=== PATIENT | female | born 1965 | race Caucasian/White ===

== ENCOUNTER → 2018-07-05 00:24 | Outpatient (CLI) | payer BC, SELFPAY ==
--- NOTE | 2018-07-05 09:00 | DI.REPORT_ITS ---
SYMPTOM/DIAGNOSIS: RT ELBOW PAIN, M25.521 RIGHT ELBOW: No prior comparison exams are available. No acute fracture or joint effusion is seen. There is mild spurring at the proximal radial ulnar joint, coronoid process and olecranon. IMPRESSION: Mild degenerative changes. No acute abnormality.
== END ==
DX: M25.521 Pain in right elbow (principal); M19.021 Primary osteoarthritis, right elbow
CPT/HCPCS: 73080

== ENCOUNTER 2018-09-28 13:06 | Outpatient (REF) | payer BC, SELFPAY ==
[2018-09-28 13:39] LABS: Bilirubin Negative (Negative); Blood Negative (Negative); Clarity Clear; Glucose Negative (Negative); Ketones Negative (Negative); Leukocyte Esterase Negative (Negative); Nitrite Negative (Negative); Specific Gravity 1.025 (1.005-1.025); Urobilinogen 0.2 EU/dL (Up TO 0.2); pH 5.5 (5-8)
== END 2018-09-28 13:26 ==
LOC: LBN 13:06
DX: R31.9 Hematuria, unspecified (principal)
CPT/HCPCS: 81003

== ENCOUNTER 2018-11-04 01:01 | Outpatient (CLI) | payer BC, SELFPAY ==
[2018-11-04 08:42] LABS: CREATININE 0.81 mg/dL (0.55-1.02)
--- NOTE | 2018-11-04 09:30 | DI.CT_ITS ---
SYMPTOM/DIAGNOSIS: ABD PAIN, RT AND FLANK R10.9, INTERMITTENT UPPER ABD PAIN CT ABDOMEN AND PELVIS: Images were performed from the lung bases through the ischial tuberosities after IV and oral contrast. The lung bases are clear. The heart size is normal. The liver, spleen, gallbladder, pancreas, kidneys and adrenals have a normal appearance. No urinary tract calculi or hydronephrosis is seen. The bladder is unremarkable. The uterus shows a lobulation of the posterior myometrium which could represent a fibroid. The ovaries are normal in size and appearance. The bowel is well opacified with oral contrast. There is mild diverticulosis. There is no evidence of diverticulitis. The small bowel is unremarkable. No adenopathy or free fluid is seen. No bone abnormalities are identified. IMPRESSION: Diverticulosis without evidence of diverticulitis. No urinary tract abnormalities seen. There is lobulation of the posterior myometrium which could represent a fibroid.
[2018-11-04] MEDS: Omnipaque 350 MG/ML 100 ML BTL IJ (09:44)
[2018-11-04] MEDS: Omnipaque 350 MG/ML 50 ML BTL PO (09:45)
== END 2018-11-04 01:21 ==
DX: R10.31 Right lower quadrant pain (principal); R10.11 Right upper quadrant pain; K57.30 Diverticulosis of large intestine without perforation or abscess without bleeding; Z13.89 Encounter for screening for other disorder
CPT/HCPCS: 74177; 82565; J3490; Q9967

== ENCOUNTER 2019-02-01 21:20 | Outpatient (REF) | payer BC, SELFPAY ==
[2019-02-01 21:26] LABS: Bilirubin Negative (Negative); Blood Negative (Negative); Clarity Clear; Glucose Negative (Negative); Ketones Negative (Negative); Leukocyte Esterase Negative (Negative); Nitrite Negative (Negative); Urobilinogen 0.2 EU/dL (Up TO 0.2); pH 5.5 (5-8)
== END 2019-02-01 21:40 ==
LOC: NCHCN 21:20
DX: R39.15 Urgency of urination (principal)
CPT/HCPCS: 81003

== ENCOUNTER 2019-05-12 08:33 | Outpatient (CLI) | payer BC, SELFPAY ==
[2019-05-12 12:04] LABS: ALT 25 U/L (12-78); AST 13 U/L (15-37); Albumin 3.7 g/dL (3.4-5.0); Alkaline Phosphatase 83 U/L (46-116); Anion Gap 8.8 mmol/L (3-11); BUN 21 mg/dL (7-18); Bilirubin, Total 0.4 mg/dL (0.2-1.0); CO2 30.2 mmol/L (21.0-32.0); CREATININE 0.86 mg/dL (0.55-1.02); Calculated LDL 156; Chloride 105 mmol/L (98-107); Cholesterol 220 mg/dL (50-200); Glucose 99 mg/dL (70-100); HDL Cholesterol 42 mg/dL (40-60); Potassium 3.8 mmol/L (3.5-5.1); Sodium 144 mmol/L (136-145); TSH (W/Ref FT4) 1.79 uIU/mL (0.358-3.74); Total Protein 6.9 g/dL (6.4-8.2); Triglyceride 111 mg/dL (30-150)
== END 2019-05-12 08:53 ==
DX: E03.9 Hypothyroidism, unspecified (principal); E53.8 Deficiency of other specified B group vitamins; E55.9 Vitamin D deficiency, unspecified; F41.9 Anxiety disorder, unspecified; G25.81 Restless legs syndrome; K21.9 Gastro-esophageal reflux disease without esophagitis; M25.551 Pain in right hip; M54.2 Cervicalgia; M75.81 Other shoulder lesions, right shoulder; R60.0 Localized edema; I10 Essential (primary) hypertension; G47.00 Insomnia, unspecified; Z00.00 Encounter for general adult medical examination without abnormal findings
CPT/HCPCS: 36415; 80053; 80061; 83721; 84443

== ENCOUNTER 2019-05-17 11:42 | Outpatient (REF) | payer BC, SELFPAY ==
--- NOTE | 2019-05-17 09:00 | PAPFT_PTH ---
PATIENT: Aura Garcia LOC: [facility] U#:[id number] AGE/SX: 53/F ROOM: RE05/17/[address]: Nicole Mendez APRN : 1965 BED: DIS: 05/17/2019 SPEC #: [id number] RECD: 05/17/19 12:58 STATUS: ISAIAH REChrissy #: [id number] KATHIA: 05/17/19 09:[address]: Nicole Mendez DEPT: [facility] Cytology RECD BY: Yanet Kearns Tissues: 1 - CX/ENDOCX FOR PAP SMEARS Procedures: PAP THIN PREP/UVM Screening HPV DNA PROBE Comments: [id number]
== END 2019-05-17 12:02 ==
LOC: LBN 11:42
DX: Z12.4 Encounter for screening for malignant neoplasm of cervix (principal); Z11.51 Encounter for screening for human papillomavirus (HPV)
CPT/HCPCS: 88142; 87624

== ENCOUNTER 2020-04-05 09:27 | Outpatient (CLI) | payer MEDICAID, SELFPAY ==
[2020-04-07 07:12] LABS: COVID-19 RT-PCR Result NEGATIVE (Negative)
== END 2020-04-05 09:47 ==
PROVIDERS: Visit Provider Family Medicine
DX: R50.9 Fever, unspecified (principal)
CPT/HCPCS: U0003

== ENCOUNTER 2020-10-31 05:07 | Outpatient (CLI) | payer MEDICAID, SELFPAY ==
[2020-10-31 10:42] LABS: ALT 21 U/L (14-59); AST 15 U/L (15-37); Alkaline Phosphatase 93 U/L (46-116); Anion Gap 8.2 mmol/L (3-11); BUN 18 mg/dL (7-18); Bilirubin, Total 0.5 mg/dL (0.2-1.0); CO2 27.8 mmol/L (21.0-32.0); Calcium 9.4 mg/dL (8.5-10.1); Chloride 106 mmol/L (98-107); Estimated GFR 57.35 (mL/min/1.73m2); Glucose 96 mg/dL (74-106); Potassium 4.3 mmol/L (3.5-5.1); Sodium 142 mmol/L (136-145); TSH (W/Ref FT4) 2.68 uIU/mL (0.36-3.74); Total Protein 7.2 g/dL (6.4-8.2)
== END 2020-10-31 05:27 ==
DX: E03.9 Hypothyroidism, unspecified (principal); G47.00 Insomnia, unspecified; Z00.00 Encounter for general adult medical examination without abnormal findings
CPT/HCPCS: 36415; 80053; 84443

== ENCOUNTER 2021-04-14 02:26 | Outpatient (CLI) | payer MEDICAID, SELFPAY ==
[2021-04-14 11:25] LABS: Hemoglobin A1C 5.6 % (<5.7)
[2021-04-14 11:53] LABS: Iron 58 ug/dL (50-170); Total Iron Binding Capacity 361 ug/dL (250-450); Transferrin Sat 16 % (15-50)
[2021-04-14 12:11] LABS: Abs Immature Grans 0.06 10^3/uL (0.0-0.06); Absolute Basophil Count 0.03 10^3/uL (0.0-0.2); Absolute Eosinophil Count 0.19 10^3/uL (0.0-0.7); Absolute Lymphocyte Count 2.03 10^3/uL (1.2-3.4); Absolute Monocyte Count 0.46 10^3/uL (0.1-0.8); Absolute Neutrophil Count 4.51 10^3/uL (1.2-6.7); Basophils % 0.4; Eosinophils % 2.6; HCT 45.7 % (36.0-46.0); HGB 15.3 g/dL (11.2-15.7); Immature Grans % 0.8; Lymphocytes % 27.9; MCH 28.3 pg (27.0-33.0); MCHC 33.5 % (32.0-36.0); MCV 84.5 fL (80-95); MPV 10.5 fL (8.0-11.0); Monocytes % 6.3; Nucleated RBC 0 %; Platelet Count 350 10^3/uL (130-400); RBC 5.41 10^6/uL (3.93-5.22); RDW 12.3 % (11.7-14.6); RDW-SD 37.9 fL; WBC 7.28 10^3/uL (4.4-10.8)
[2021-04-14 12:20] LABS: Bilirubin Negative (Negative); Blood Negative (Negative); Clarity Clear (Clear); Glucose Negative (Negative); Ketones Negative (Negative); Leukocyte Esterase Negative (Negative); Nitrite Negative (Negative); Specific Gravity 1.025 (1.005-1.025); Urobilinogen 0.2 EU/dL (Up TO 0.2); pH 5.5 (5-8)
[2021-04-14 12:23] LABS: ALT 24 U/L (14-59); AST 15 U/L (15-37); Alkaline Phosphatase 93 U/L (46-116); Anion Gap 10.8 mmol/L (3-11); BUN 12 mg/dL (7-18); Bilirubin, Total 0.5 mg/dL (0.2-1.0); CO2 27.2 mmol/L (21.0-32.0); CREATININE 0.9 mg/dL (0.55-1.02); Calcium 9.6 mg/dL (8.5-10.1); Calculated LDL 184 mg/dL (<100); Chloride 104 mmol/L (98-107); Cholesterol 258 mg/dL (<200); Ferritin 67 ng/mL (8-252); Folate 15.4 ng/mL (8.6-20.0); Glucose 97 mg/dL (74-106); HDL Cholesterol 47 mg/dL (40-60); Sodium 142 mmol/L (136-145); TSH 1.89 uIU/mL (0.36-3.74); Total Protein 7.5 g/dL (6.4-8.2); Triglyceride 136 mg/dL (<150); Vitamin B12 368 pg/mL (193-986)
[2021-04-14 12:43] LABS: FREE T4 1.31 ng/dL (0.76-1.46)
[2021-04-14 23:31] LABS: T3,Free 3.3 pg/mL (2.8-5.3)
[2021-04-16 08:55] LABS: Homocysteine 12.3 umol/L (5.0-13.9)
[2021-04-16 09:52] LABS: Lipoprotein (a) 14 mg/dL (<=30)
== END 2021-04-14 02:27 | disposition home or self-care (01) ==
PROVIDERS: Visit Provider Naturopath
DX: E78.5 Hyperlipidemia, unspecified (principal); E03.9 Hypothyroidism, unspecified; R53.83 Other fatigue; R10.31 Right lower quadrant pain
CPT/HCPCS: 36415; 80053; 80061; 83090; 83695; 81003; 82607; 82728; 82746; 83036; 83540; 83550; 84439; 84443; 84481; 85025

== ENCOUNTER 2021-04-29 02:18 | Outpatient (CLI) | payer MEDICAID, SELFPAY ==
--- NOTE | 2021-04-29 | DI.US_ITS ---
Exam(s) US ABD PELV TRANSVAG NON-OB EXAM: US ABD PELV TRANSVAG NON-OB CLINICAL HISTORY: EPIGASTRIC PAIN,R10.13,RLQ PAIN,R10.31 TECHNIQUE: Ultrasound of the abdomen and pelvic was performed using standard protocol. COMPARISON: US PELVIS TRANSVAG from 08/03/[address] ABDOMEN PELVIS W from 11/04/2018 FINDINGS: LIVER: Normal echogenicity. The liver measures 13.9 cm in length. GALLBLADDER: No evidence of cholelithiasis. No evidence of wall thickening. No pericholecystic fluid identified. KIDNEYS: Kidneys are symmetric in size. No evidence of renal calculi. No evidence of hydronephrosis. No renal mass or cyst identified. BILIARY SYSTEM: Common bile duct measures < 7 mm. No intrahepatic biliary ductal dilation. ARAUZ'S SIGN: Negative. PANCREAS: Normal where visualized. SPLEEN: Not enlarged. ABDOMINAL AORTA AND IVC: Visualized portions normal caliber. ASCITES: None seen. UTERUS: Position: Anteverted. Size: 8.1 long by 3.6 AP by 5.1 transverse cm Endometrium: 0.2 cm. Normal for patient's menstrual status. Myometrium: 1.2 x 1.3 x 1.4 cm uterine fibroid in the posterior body. Cervix: Nabothian cysts are present. OVARIES: The ovaries were not seen transabdominally or transvaginally on this examination. No adnexa l mass is seen sonographically. CUL-DE-SAC: Free fluid: None. IMPRESSION: 1. Unremarkable abdominal ultrasound. 2. Small uterine fibroid. 3. Ovaries not visualized transabdominally or transvaginally. No adnexal masses identified. DATA REPOSITORY:
== END 2021-04-29 02:38 ==
PROVIDERS: Visit Provider Naturopath
DX: R10.13 Epigastric pain (principal); R10.31 Right lower quadrant pain; D25.9 Leiomyoma of uterus, unspecified
CPT/HCPCS: 76700; 76830; 76856

== ENCOUNTER 2022-02-04 02:45 | Outpatient (CLI) | payer MEDICAID, SELFPAY ==
[2022-02-04 09:31] LABS: ALT 26 U/L (14-59); AST 12 U/L (15-37); Albumin 3.8 g/dL (3.4-5.0); Alkaline Phosphatase 91 U/L (46-116); Anion Gap 5.1 mmol/L (3-11); BUN 13 mg/dL (7-18); Bilirubin, Total 0.6 mg/dL (0.2-1.0); CO2 28.9 mmol/L (21.0-32.0); CREATININE 0.9 mg/dL (0.55-1.02); Calcium 9.4 mg/dL (8.5-10.1); Calculated LDL 164 mg/dL (<100); Chloride 107 mmol/L (98-107); Cholesterol 238 mg/dL (<200); Glucose 101 mg/dL (74-106); HDL Cholesterol 47 mg/dL (40-60); Potassium 4.4 mmol/L (3.5-5.1); Sodium 141 mmol/L (136-145); TSH (W/Ref FT4) 3.48 uIU/mL (0.36-3.74); Total Protein 7.2 g/dL (6.4-8.2); Triglyceride 135 mg/dL (<150)
== END 2022-02-04 02:46 | disposition home or self-care (01) ==
LOC: LBO 02:45
DX: Z00.00 Encounter for general adult medical examination without abnormal findings (principal); Z13.220 Encounter for screening for lipoid disorders; E03.9 Hypothyroidism, unspecified; G47.00 Insomnia, unspecified
CPT/HCPCS: 36415; 80053; 80061; 84443

== ENCOUNTER 2022-03-19 01:43 | Outpatient (CLI) | payer MEDICAID, SELFPAY ==
--- NOTE | 2022-03-19 08:30 | DI.MAMMO_ITS ---
Exam(s) MAMMO SCREENING EXAM: MAMMO SCREENING CLINICAL HISTORY: screening,z12.39 TECHNIQUE: Mammograms were interpreted according to the usual protocol including computer analysis w [facility] CAD system, tomosynthesis and C-view imaging. COMPARISON: FINDINGS: The breasts are of moderate density with fairly symmetrical distribution of fibroglandular tissue. N o dominant mass or clumped microcalcification is identified in either breast. The current examinatio n is compared with previous examinations including March 2021 and there has been no gross interval miller ge in appearance in comparison with the prior studies. IMPRESSION: No specific evidence of malignancy at this time. Routine screening examinations are suggested at ye jeremias intervals in this age group according to the ACS ACR guidelines. BI-RADS Category 1 - Negative Breast Density - Category B - Scattered areas of fibroglandular density
== END 2022-03-19 02:03 ==
DX: Z12.31 Encounter for screening mammogram for malignant neoplasm of breast (principal)
CPT/HCPCS: 77063; 77067

== ENCOUNTER 2022-05-22 03:33 | Outpatient (CLI) | payer MEDICAID, SELFPAY ==
--- NOTE | 2022-05-22 10:15 | RT.EKG_ITS ---
APPROVED REPORT Exam: Resting ECG Reason for Exam: PALPITATION Patient Location: O HR:67 bpm ECG Measurements Heart Rate 67 AXIS AR 143 P 41 QRSd 93 QRS 42 QT 376 T 36 QTc 397 Conclusion Sinus rhythm...normal P axis, V-rate 50- 99 Baseline wander in lead(s) V6 Normal Electrocardiogram
== END 2022-05-22 03:34 | disposition home or self-care (01) ==
LOC: RT 03:33
PROVIDERS: Visit Provider Naturopath
DX: R00.2 Palpitations (principal)
CPT/HCPCS: 93005; 93010

== ENCOUNTER 2023-02-23 03:05 | Outpatient (CLI) | payer MEDICAID, SELFPAY ==
[2023-02-23 09:09] LABS: Abs Immature Grans 0.03 10^3/uL (0.0-0.06); Absolute Basophil Count 0.05 10^3/uL (0.0-0.2); Absolute Eosinophil Count 0.26 10^3/uL (0.0-0.7); Absolute Lymphocyte Count 2.33 10^3/uL (1.2-3.4); Absolute Monocyte Count 0.42 10^3/uL (0.1-0.8); Absolute Neutrophil Count 4.01 10^3/uL (1.2-6.7); Basophils % 0.7; ESR 6 mm/hr (0-30); Eosinophils % 3.7; HCT 44.8 % (36.0-46.0); HGB 14.8 g/dL (11.2-15.7); Immature Grans % 0.4; Lymphocytes % 32.8; MCH 28.3 pg (27.0-33.0); MCV 86 fL (80-95); Monocytes % 5.9; Neutrophils % 56.5; RBC 5.23 10^6/uL (3.93-5.22); RDW 12.1 % (11.7-14.6); RDW-SD 37.7 fL
[2023-02-23 09:19] LABS: Diff Comment Diff Reviewed; RBC Morphology Normal
[2023-02-23 10:04] LABS: Hemoglobin A1C 5.6 % (<5.7)
[2023-02-23 10:14] LABS: ALT 21 U/L (14-59); AST 14 U/L (15-37); Albumin 3.6 g/dL (3.4-5.0); Alkaline Phosphatase 77 U/L (46-116); Anion Gap 8.5 mmol/L (3-11); BUN 15 mg/dL (7-18); Bilirubin, Total 0.4 mg/dL (0.2-1.0); CO2 28.5 mmol/L (21.0-32.0); CREATININE 0.9 mg/dL (0.55-1.02); Calcium 9.3 mg/dL (8.5-10.1); Calculated LDL 189 mg/dL (<100); Chloride 109 mmol/L (98-107); Cholesterol 264 mg/dL (<200); Ferritin 74 ng/mL (8-252); Folate 17.7 ng/mL (8.6-20.0); Glucose 105 mg/dL (74-106); HDL Cholesterol 49 mg/dL (40-60); Sodium 146 mmol/L (136-145); TSH 2.28 uIU/mL (0.36-3.74); Total Protein 7.1 g/dL (6.4-8.2); Triglyceride 134 mg/dL (<150); Vitamin B12 857 pg/mL (193-986)
[2023-02-23 10:15] LABS: Vitamin D 25 Total 49.7 ng/mL (30-100)
[2023-02-23 13:35] LABS: C-Reactive Protein 0.14 mg/dL (0.0-0.3); FREE T4 1.16 ng/dL (0.76-1.46)
[2023-02-23 18:19] LABS: Fibrinogen 340 mg/dL (171-384); T3,Free 4.3 pg/mL (2.8-5.3)
[2023-02-23 19:06] LABS: Estradiol <12 pg/mL (See Note); Progesterone 0.2 ng/mL (See Table)
[2023-02-23 19:52] LABS: Thyroperoxidase Antibody <28 U/mL (<=60)
[2023-02-24 09:02] LABS: DHEA Sulfate 154 ug/dL (30-182)
[2023-02-24 13:18] LABS: ANA Interpretation Negative (Negative)
[2023-02-25 18:39] LABS: Selenium, Serum 104 mcg/L (110-165)
[2023-02-26 23:41] LABS: Iodine, S 61 ng/mL (40-92)
[2023-02-27 16:34] LABS: Testosterone, Free 0.33 ng/dL (<0.13-0.90); Testosterone, Total 18 ng/dL (8-60)
[2023-03-03 12:49] LABS: Insulin, Free 7 uIU/mL (3-25)
[2023-03-03 12:55] LABS: Insulin, Total 9 uIU/mL (3-25)
== END 2023-02-23 03:06 | disposition home or self-care (01) ==
PROVIDERS: PCP Nurse Practitioner Family
DX: R41.840 Attention and concentration deficit (principal); G47.01 Insomnia due to medical condition; R68.82 Decreased libido; E55.9 Vitamin D deficiency, unspecified; R53.83 Other fatigue; E03.9 Hypothyroidism, unspecified; R79.89 Other specified abnormal findings of blood chemistry
CPT/HCPCS: 36415; 80053; 80061; 82306; 82533; 82627; 83525; 83527; 84402; 84403; 85384; 85652; 82190; 82607; 82626; 82670; 82728; 82746; 83036; 84144; 84255; 84439; 84443; 84481; 85025; 86038; 86140; 86376

== ENCOUNTER 2024-02-29 11:00 | Outpatient (CLI) | payer BC, SELFPAY ==
[2024-02-29 13:09] LABS: ALT 27 U/L (14-59); AST 15 U/L (15-37); Albumin 3.7 g/dL (3.4-5.0); Alkaline Phosphatase 83 U/L (46-116); BUN 18 mg/dL (7-18); Bilirubin, Total 0.5 mg/dL (0.2-1.0); CREATININE 0.8 mg/dL (0.55-1.02); Calcium 9.2 mg/dL (8.5-10.1); Calculated LDL 167 mg/dL (<100); Chloride 107 mmol/L (98-107); Cholesterol 260 mg/dL (<200); Estimated GFR 84.82 (mL/min/1.73m2); Glucose 107 mg/dL (74-106); HDL Cholesterol 51 mg/dL (40-60); Sodium 145 mmol/L (136-145); TSH (W/Ref FT4) 2.91 uIU/mL (0.36-3.74); Total Protein 7.3 g/dL (6.4-8.2); Triglyceride 212 mg/dL (<150)
== END 2024-02-29 11:01 | disposition home or self-care (01) ==
LOC: LOS 11:00
PROVIDERS: PCP Nurse Practitioner Family; Referring Provider Nurse Practitioner Family; Visit Provider Nurse Practitioner Family
DX: E03.9 Hypothyroidism, unspecified (principal); Z00.00 Encounter for general adult medical examination without abnormal findings
CPT/HCPCS: 36415; 80053; 80061; 84443

== ENCOUNTER → 2024-03-03 00:34 | Outpatient (CLI) | payer BC, SELFPAY ==
--- NOTE | 2024-03-03 11:07 | DI.RAD_ITS ---
Exam(s) XR HAND LT COMPLETE EXAM: XR HAND LT COMPLETE CLINICAL HISTORY: swelling,ltd range of motion for 6 months after trauma,r22.32. TECHNIQUE: 2D digital imaging was performed. COMPARISON: No exams were available for comparison FINDINGS: 3 views There few small calcific densities adjacent to the lateral aspect of the interphalangeal joint of the thumb. There is mild overlying soft tissue swelling. This may be the site of prior stated trauma. There are no other osseous findings in the thumb. There is no metallic foreign body. No degenerati ve changes. Remainder of the there is unremarkable. IMPRESSION: Tiny calcific densities adjacent to the outer aspect of the interphalangeal joint of the thumb. Give n that there is overlying soft tissue swelling in this area this may be a sequelae of the prior remot e penetrating injury stated on the requisition. Correlation with site of tenderness is recommended. No evidence of osteomyelitis. DATA REPOSITORY: RADIATION DOSE DELIVERED:
== END ==
PROVIDERS: PCP Nurse Practitioner Family; Visit Provider Nurse Practitioner Family
DX: R22.32 Localized swelling, mass and lump, left upper limb (principal)
CPT/HCPCS: 73130

== ENCOUNTER 2024-08-28 02:40 | Outpatient (CLI) | payer MEDICAID, SELFPAY ==
[2024-08-28 13:07] LABS: TSH (W/Ref FT4) 6.48 uIU/mL (0.36-3.74)
[2024-08-28 13:32] LABS: FREE T4 0.97 ng/dL (0.76-1.46)
== END 2024-08-28 02:41 | disposition home or self-care (01) ==
LOC: LOS 02:40
PROVIDERS: PCP Nurse Practitioner Family; Visit Provider Nurse Practitioner Family
DX: E03.9 Hypothyroidism, unspecified (principal); Z01.30 Encounter for examination of blood pressure without abnormal findings
CPT/HCPCS: 36415; 84439; 84443

== ENCOUNTER 2025-03-02 15:00 | Outpatient (REF) | payer MEDICAID, SELFPAY ==
[2025-03-02 13:42] LABS: Abs Immature Grans 0.03 10^3/uL (0.0-0.06); Absolute Basophil Count 0.03 10^3/uL (0.0-0.2); Absolute Lymphocyte Count 2.19 10^3/uL (1.2-3.4); Absolute Monocyte Count 0.47 10^3/uL (0.1-0.8); Absolute Neutrophil Count 4.17 10^3/uL (1.2-6.7); Basophils % 0.4 %; Eosinophils % 2.8 %; HCT 45.4 % (36.0-46.0); HGB 14.8 g/dL (11.2-15.7); Immature Grans % 0.4 %; Lymphocytes % 30.9 %; MCH 28.2 pg (27.0-33.0); MCHC 32.6 % (32.0-36.0); MCV 87 fL (80-95); MPV 10.3 fL (8.0-11.0); Monocytes % 6.6 %; Neutrophils % 58.9 %; Platelet Count 321 10^3/uL (130-400); RBC 5.24 10^6/uL (3.93-5.22); RDW 12.3 % (11.7-14.6); WBC 7.09 10^3/uL (4.4-10.8)
[2025-03-02 15:19] LABS: TSH (W/Ref FT4) 4.81 uIU/mL (0.36-3.74); Vitamin B12 842 pg/mL (193-986); Vitamin D 25 Total 52 ng/mL (30-100)
== END 2025-03-02 15:01 | disposition home or self-care (01) ==
LOC: LBN 15:00
PROVIDERS: PCP Nurse Practitioner Family; Visit Provider Nurse Practitioner Family
DX: E03.9 Hypothyroidism, unspecified (principal); E53.8 Deficiency of other specified B group vitamins; E55.9 Vitamin D deficiency, unspecified
CPT/HCPCS: 82306; 82607; 84439; 84443; 85025